=== PATIENT | female | born 1995 | race African-American/Black ===

== ENCOUNTER 2019-08-16 21:10 | Emergency (ER) | payer OTHER ==
--- NOTE | 2019-08-16 21:20 | PDOC ---
Rapid Medical Evaluation Chief Complaint: Suicidal Time Seen by Provider: 08/16/19 21:18 Medical Evaluation: 08/16/19 21:18 CC: depressed x2 weeks with SI. Told father she tried to OD on "pills" but " spit them out." PE: crying in triage. flat affect Orders: labs, urine, 1:1 Patient to proceed to ER for evaluation. Discharge Disposition - Diagnosis Depressed - Referrals - Patient Instructions
[2019-08-16 21:26] VITALS: BMI 17.1
--- NOTE | 2019-08-16 22:03 | PDOC ---
History of Present Illness - General Chief Complaint: Suicidal Stated Complaint: Psychiatric Time Seen by Provider: 08/16/19 21:18 Past History - Past Medical History Allergies/Adverse Reactions: Allergies Allergy/AdvReac Type Severity Reaction Status Date / Time No Known Allergies Allergy Verified 08/16/19 21:22 - Psycho Social/Smoking Cessation Hx Smoking History: Never smoked Drug/Substance Use Hx: Yes (marijuana) *Physical Exam - Vital Signs Last Vital Signs Temp Pulse Resp BP Pulse Ox 98.6 F 78 16 128/79 99 08/16/19 21:22 08/16/19 21:22 08/16/19 21:22 08/16/19 21:22 08/16/19 21:22 ED Treatment Course - LABORATORY CBC & Chemistry Diagram: 08/16/19 22:38 08/16/19 22:38 Medical Decision Making - Medical Decision Making HPI: 24yo F with PMH of depression and anxiety (never been medicated) presenting with depression and suicide attempt. Patient states she has been feeling depressed for the past ten years, but it has gotten worse. Parents at the bedside stated she asked for help earlier today and so they brought her to the ER. Has had poor sleep, low interest in hobbies, endorses feelings of guilt for "not getting better," low energy level, poor appetite, +psychomotor retardation, +suicidal ideation. Patient states she took about ten "yellow circular flat pills" starting with a "C" after which she threw them up. Spoke with a therapist in [place] at [address] but "it did not help." States "it doesn't matter. I just want to sleep. I don't want to be here anymore." Denies prior suicide attempts or hospitalizations. Drank two beers today. Smoked weed a couple days ago. No other substances. PCP: none Psych: does not know the name ROS: Constitutional: no fever, no chills HEENT: no throat pain, no dysphagia Cardiovascular: no chest pain, no palpitations Respiratory: no cough, no shortness of breath Gastrointestinal: no abdominal pain, no nausea Genitourinary: no dysuria, no hematuria Musculoskeletal: no myalgia, no arthralgia Skin: no rash, no itching Neurologic: no headache, no weakness PE: General: Awake, alert, and fully oriented, irritable, flattened affect Head: No signs of trauma Eyes: EOMI, sclera anicteric ENT: Moist mucus membranes Neck: Normal ROM, supple Lungs: Lungs clear, Normal breath sounds Cardio: Regular rhythm, S1 and S2 present Abdomen: Soft, nontender Extremities: Normal range of motion, Distal pulses present SKIN: Warm, Dry, normal turgor Neurologic: Cranial nerves II through XII grossly intact. Normal speech ED Course/MDM: DDX including but not limited to suicidal ideation, intoxication, depression, bipolar disorder Labs, EKG Psych consult EKG: rate 63, QTc 433, sinus rhythm with sinus arrhythmia 08/16/19 22:03 Page to on-call psychiatry, 08/16/19 22:27 Discussed case with ARTHUR Cote who will come see patient in the morning. 08/16/19 23:45 CBC WBC 6.2 K/mm3 (4.0-10.0) 08/16/19 22:38 RBC 5.23 M/mm3 (3.60-5.2) H 08/16/19 22:38 Hgb 13.6 GM/dL (10.7-15.3) 08/16/19 22:38 Hct 41.9 % (32.4-45.2) 08/16/19 22:38 MCV 80.0 fl (80-96) 08/16/19 22:38 MCH 26.0 pg (25.7-33.7) 08/16/19 22:38 MCHC 32.5 g/dl (32.0-36.0) 08/16/19 22:38 RDW 17.5 % (11.6-15.6) H 08/16/19 22:38 Plt Count 347 K/MM3 (134-434) 08/16/19 22:38 MPV 7.9 fl (7.5-11.1) 08/16/19 22:38 Absolute Neuts (auto) 3.2 K/mm3 (1.5-8.0) 08/16/19 22:38 Neutrophils % 51.7 % (42.8-82.8) 08/16/19 22:38 Lymphocytes % 37.6 % (8-40) 08/16/19 22:38 Monocytes % 8.8 % (3.8-10.2) 08/16/19 22:38 Eosinophils % 1.3 % (0-4.5) 08/16/19 22:38 Basophils % 0.6 % (0-2.0) 08/16/19 22:38 Nucleated RBC % 0 % (0-0) 08/16/19 22:38 No leukocytosis CMP Sodium 139 mmol/L (136-145) 08/16/19 22:38 Potassium 3.5 mmol/L (3.5-5.1) 08/16/19 22:38 Chloride 106 mmol/L (98-107) 08/16/19 22:38 Carbon Dioxide 23 mmol/L (21-32) 08/16/19 22:38 Anion Gap 11 MMOL/L (8-16) 08/16/19 22:38 BUN 7.5 mg/dL (7-18) 08/16/19 22:38 Creatinine 0.9 mg/dL (0.55-1.3) 08/16/19 22:38 Est GFR (CKD-EPI)AfAm 105.19 08/16/19 22:38 Est GFR (CKD-EPI)NonAf 90.76 08/16/19 22:38 Random Glucose 71 mg/dL (74-106) L 08/16/19 22:38 Calcium 9.9 mg/dL (8.5-10.1) 08/16/19 22:38 Total Bilirubin 0.8 mg/dL (0.2-1) 08/16/19 22:38 AST 36 U/L (15-37) 08/16/19 22:38 ALT 25 U/L (13-61) 08/16/19 22:38 Alkaline Phosphatase 58 U/L (45-117) 08/16/19 22:38 Total Protein 8.5 g/dl (6.4-8.2) H 08/16/19 22:38 Albumin 5.1 g/dl (3.4-5.0) H 08/16/19 22:38 TSH 0.48 uIU/ml (0.358-3.74) 08/16/19 22:38 Electrolytes unremarkable Normal TSH Tox screen positive for marijuana Negative salicylates and acetaminophen negative 08/17/19 02:36 Patient laying in stretcher Pending psych evaluation 08/17/19 05:08 Psychiatry [employer] evaluating the patient 08/17/19 06:41 Patient to be 2PC'ed From my standpoint, patient is Medically Cleared for Transfer to inpatient psychiatric facility 08/17/19 06:57 Patient signed out to Dr. Viera and day team 08/17/19 07:01 Discharge - Discharge Information Problems reviewed: Yes Clinical Impression/Diagnosis: Depressed Qualifiers: Depression Type: major depressive disorder Major depression recurrence: unspecified whether recurrent Active/Remission status: currently active Major depression episode severity: severe Psychotic features: without psychotic features Qualified Code(s): F32.2 - Major depressive disorder, single episode, severe without psychotic features Suicidal behavior Qualifiers: Attempted self-injury: with attempted self-injury Qualified Code(s): T14.91XA - Suicide attempt, initial encounter Condition: Guarded Disposition: TRANSFER ACUTE CARE/OTHER HOSP - Follow up/Referral - Patient Discharge Instructions - Post Discharge Activity Work/Back to School Note: My Personal Safety Plan
--- NOTE | 2019-08-16 22:06 | PDOC ---
Attending Attestation - Resident Resident Name: Brigida Fuentes - ED Attending Attestation I have performed the following: I have examined & evaluated the patient, The case was reviewed & discussed with the resident, I agree w/resident's findings & plan - HPI HPI: 08/16/19 23:25 see resident hpi - Physicial Exam PE: 08/16/19 23:39 agree with resident exam - Medical Decision Making 08/16/19 23:39 24-year-old female status post suicide attempt with overdose of unknown quantity of unknown pills Plan for medical clearance Call placed to psychiatry currently awaiting callback patient is in no acute distress at this time EKG shows a normal sinus rhythm at 63 bpm with a sinus arrhythmia intervals are within normal limits Rhythm strip shows sinus rhythm rhythm with sinus arrhythmia as well as 65-70 bpm
[2019-08-16 22:41] LABS: BASO % 0.6 % (0-2.0); EOS % 1.3 % (0-4.5); HEMATOCRIT 41.9 % (32.4-45.2); HEMOGLOBIN 13.6 GM/dL (10.7-15.3); LYMPH % 37.6 % (8-40); MCHC 32.5 g/dl (32.0-36.0); MEAN PLT VOLUME 7.9 fl (7.5-11.1); MONO % 8.8 % (3.8-10.2); NEUT % 51.7 % (42.8-82.8); PLATELET COUNT 347 K/MM3 (134-434); RBC 5.23 M/mm3 (3.60-5.2); RDW 17.5 % (11.6-15.6); WHITE BLOOD COUNT 6.2 K/mm3 (4.0-10.0)
[2019-08-16 23:05] LABS: ALBUMIN 5.1 g/dl (3.4-5.0); BILIRUBIN,TOTAL 0.8 mg/dL (0.2-1); BLOOD UREA NITROGEN 7.5 mg/dL (7-18); CALCIUM 9.9 mg/dL (8.5-10.1); CREATININE 0.9 mg/dL (0.55-1.3); POTASSIUM 3.5 mmol/L (3.5-5.1); TOT PROT 8.5 g/dl (6.4-8.2)
[2019-08-17] LABS: EPI CELLS 0.8 /HPF (0-5/HPF); HYALINE CASTS 133 /lpf (0-8); PH,URINE 6.5 (5.0-8.0); URINE APPEARANCE CLOUDY; URINE BACTERIA 5990.2 /hpf (NEGATIVE); URINE BILIRUBIN NEGATIVE (NEGATIVE); URINE COLOR YELLOW; URINE GLUCOSE (UA) NEGATIVE (NEGATIVE); URINE KETONE 2+ (NEGATIVE); URINE LEUK ESTERASE 3+ (NEGATIVE); URINE NITRITE POSITIVE (NEGATIVE); URINE PROTEIN NEGATIVE (NEGATIVE); URINE RBC 5 /hpf (0-4); URINE WBC 167 /hpf (0-5)
[2019-08-17 00:49] LABS: COCAINE, UR NEGATIVE ng/ml (CUTOFF=300); METHADONE, UR NEGATIVE ng/ml (CUTOFF=300); OPIATES, URI NEGATIVE ng/ml (CUTOFF=300); PHENCYCLIDINE,URINE NEGATIVE ng/ml (CUTOFF=25); URINE AMPHETAMINES NEGATIVE ng/ml (CUTOFF=500); URINE BARBITURATES NEGATIVE ng/ml (CUTOFF=200); URINE BENZODIAZEPINES NEGATIVE ng/ml (CUTOFF=200)
--- NOTE | 2019-08-17 07:10 | PN ---
Mental Health Exam - Mental Status Exam Alert and Oriented to: Time, Place, Person Cognitive Function: Grossly Intact Patient Appearance: Unkempt, Disheveled Mood: Depressed, Anxious, Apprehensive, Irritable Affect: Flat, Constricted Patient Behavior: Cooperative Speech Pattern: Tangential Voice Loudness: Mildly Soft/Quiet Thought Process: Circumstantial Thought Disorder: Not Present Hallucinations: Denies Suicidal Ideation: Current, Plan ("Take od of pills to end it all") Homicidal Ideation: Denies Insight/Judgement: Impaired Sleep: Poorly, Difficulty falling asleep (not sleeping for 1 week. ) Appetite: Weight loss Muscle strength/Tone: Normal Gait/Station: Normal
--- NOTE | 2019-08-17 07:18 | PN ---
Progress Note (short form) - Note Progress Note: this is a24yo female with a past history , presented to ER after taking unknown quantity of her moms tabs. Report by dr Fuentes. met patient in ER awake on streacher, while parents alongside her. Client is hopeless helpless in context of recent job loss, unable to pay portion of rent, facing homelessness. she has por appetite, weight loss for past few months,. Client has loss of interest in think she like to do. She is not sleeping for past 4 days. Anxiety level is extremly high. She smokes marjuanna increasing use for past week. She has become more reclusive. No suicidal or homicidal ideation, co of feeling tired all the time. Problem List - Problems (1) Major depression, recurrent, full remission Assessment/Plan: Client is recommended to go to inpatient as she is a danger to herself. Admit 2pc, seek inpatient psychiatric bed. Hold SSRI for 24 hours, then may start leapro 5mg po day. maintain 1;1 Code(s): F33.42 - MAJOR DEPRESSIVE DISORDER, RECURRENT, IN FULL REMISSION
--- NOTE | 2019-08-17 08:07 | PDOC ---
*Physical Exam - Vital Signs Last Vital Signs Temp Pulse Resp BP Pulse Ox 98.6 F 74 16 119/83 100 08/16/19 21:22 08/17/19 01:30 08/17/19 01:30 08/17/19 01:30 08/17/19 01:30 - Physical Exam Comments: 08/17/19 08:06 Patient is a 24-year-old female diagnosed with major depressive episode and recommended for inpatient admission by psychiatry. CBC/CMP are within normal limits. urinalysis consistent with pyuria likely secondary to UTI. Will administer IM ceftriaxone-1 g. Will medically clear. Patient medically clear for inpatient psychiatric evaluation. ED Treatment Course - LABORATORY CBC & Chemistry Diagram: 08/16/19 22:38 08/16/19 22:38 - ADDITIONAL ORDERS Additional order review: Laboratory Results 08/17/19 08/16/19 08/16/19 00:00 23:45 23:45 Sodium Potassium Chloride Carbon Dioxide Anion Gap BUN Creatinine Est GFR (CKD-EPI)AfAm Est GFR (CKD-EPI)NonAf Random Glucose Calcium Total Bilirubin AST ALT Alkaline Phosphatase Total Protein Albumin TSH Urine Color Yellow Urine Appearance Cloudy Urine pH 6.5 Ur Specific [place] 1.014 Urine Protein Negative Urine Glucose (UA) Negative Urine Ketones 2+ H Urine Blood 1+ H Urine Nitrite Positive H Urine Bilirubin Negative Urine Urobilinogen 1.0 Ur Leukocyte Esterase 3+ H Urine WBC (Auto) 167 Urine RBC (Auto) 5 Urine Casts (Auto) 133 U Pathogenic Cast Auto None seen U Epithel Cells (Auto) 0.8 Urine Bacteria (Auto) 5990.2 Urine HCG, Qual Negative Salicylates 5.4 Opiates Screen Methadone Screen Acetaminophen Barbiturate Screen Phencyclidine Screen Ur Amphetamines Screen MDMA (Ecstasy) Screen Benzodiazepines Screen Cocaine Screen U Marijuana (THC) Screen 08/16/19 08/16/19 08/16/19 23:45 22:38 22:38 Sodium Potassium Chloride Carbon Dioxide Anion Gap BUN Creatinine Est GFR (CKD-EPI)AfAm Est GFR (CKD-EPI)NonAf Random Glucose Calcium Total Bilirubin AST ALT Alkaline Phosphatase Total Protein Albumin TSH 0.48 Urine Color Urine Appearance Urine pH Ur Specific [place] Urine Protein Urine Glucose (UA) Urine Ketones Urine Blood Urine Nitrite Urine Bilirubin Urine Urobilinogen Ur Leukocyte Esterase Urine WBC (Auto) Urine RBC (Auto) Urine Casts (Auto) U Pathogenic Cast Auto U Epithel Cells (Auto) Urine Bacteria (Auto) Urine HCG, Qual Salicylates Opiates Screen Negative Methadone Screen Negative Acetaminophen <2.0 Barbiturate Screen Negative Phencyclidine Screen Negative Ur Amphetamines Screen Negative MDMA (Ecstasy) Screen Negative Benzodiazepines Screen Negative Cocaine Screen Negative U Marijuana (THC) Screen Positive A* 08/16/19 22:38 Sodium 139 Potassium 3.5 Chloride 106 Carbon Dioxide 23 Anion Gap 11 BUN 7.5 Creatinine 0.9 Est GFR (CKD-EPI)AfAm 105.19 Est GFR (CKD-EPI)NonAf 90.76 Random Glucose 71 L Calcium 9.9 Total Bilirubin 0.8 AST 36 ALT 25 Alkaline Phosphatase 58 Total Protein 8.5 H Albumin 5.1 H TSH Urine Color Urine Appearance Urine pH Ur Specific [place] Urine Protein Urine Glucose (UA) Urine Ketones Urine Blood Urine Nitrite Urine Bilirubin Urine Urobilinogen Ur Leukocyte Esterase Urine WBC (Auto) Urine RBC (Auto) Urine Casts (Auto) U Pathogenic Cast Auto U Epithel Cells (Auto) Urine Bacteria (Auto) Urine HCG, Qual Salicylates Opiates Screen Methadone Screen Acetaminophen Barbiturate Screen Phencyclidine Screen Ur Amphetamines Screen MDMA (Ecstasy) Screen Benzodiazepines Screen Cocaine Screen U Marijuana (THC) Screen 08/16/19 22:38 RBC 5.23 H MCV 80.0 MCHC 32.5 RDW 17.5 H MPV 7.9 Neutrophils % 51.7 Lymphocytes % 37.6 Monocytes % 8.8 Eosinophils % 1.3 Basophils % 0.6 Discharge - Discharge Information Clinical Impression/Diagnosis: Depressed - Follow up/Referral - Patient Discharge Instructions - Post Discharge Activity Work/Back to School Note: My Personal Safety Plan
[2019-08-17] MEDS ORDERED: CEFTRIAXONE 1,000 MG in DEXTROSE 5%-WATER - 50 ML IM ONE (08:08)
[2019-08-17] MEDS ORDERED: LIDOCAINE HCL 1%, 10 MG/ML (20ML VIAL) ONE (08:14)
[2019-08-17] MEDS ORDERED: cefTRIAXone SODIUM 1 GM VIAL ONE (08:15)
[2019-08-17] MEDS ORDERED: levoFLOXacin 750 MG TABLET PO ONE (08:20)
[2019-08-17] MEDS ORDERED: ONDANSETRON *ODT* 4 MG TABLET SL ONE (08:55)
[2019-08-17] MEDS ORDERED: ONDANSETRON *ODT* 4 MG TABLET ONE (08:55)
[2019-08-17 09:41] VITALS: TEMP 99.3
--- NOTE | 2019-08-17 11:31 | EKG ---
Test Reason : Blood Pressure : / mmHG Vent. Rate : 063 BPM Atrial Rate : 063 BPM P-R Int : 138 ms QRS Dur : 096 ms QT Int : 424 ms P-R-T Axes : 008 050 048 degrees QTc Int : 433 ms SINUS RHYTHM WITH MARKED SINUS ARRHYTHMIA OTHERWISE NORMAL ECG NO PREVIOUS ECGS AVAILABLE Confirmed by KRISTIAN DANIELS, VERNON ([id number]) on 08/17/2019 11:31:16 AM Referred By: Confirmed By:VERNON TOWNSEND MD
[2019-08-17] MEDS ORDERED: MELATONIN 5 MG TABLETS PO ONE (16:51)
[2019-08-17 17:35] VITALS: BP 104/71; PULSE 56
--- NOTE | 2019-08-17 17:48 | PDOC ---
*Physical Exam - Vital Signs Last Vital Signs Temp Pulse Resp BP Pulse Ox 99.3 F 56 L 16 104/71 100 08/17/19 09:30 08/17/19 17:34 08/17/19 17:34 08/17/19 17:34 08/17/19 17:34 - Physical Exam Comments: 08/17/19 18:05 Gen: aaox3, resting comfortably heart: +s1s2 reg lungs: cta bl abd: soft, nt/nd +bs ext: no c/c/e ED Treatment Course - LABORATORY CBC & Chemistry Diagram: 08/16/19 22:38 08/16/19 22:38 - ADDITIONAL ORDERS Additional order review: 08/16/19 22:38 RBC 5.23 H MCV 80.0 MCHC 32.5 RDW 17.5 H MPV 7.9 Neutrophils % 51.7 Lymphocytes % 37.6 Monocytes % 8.8 Eosinophils % 1.3 Basophils % 0.6 - Medications Given in the ED: ED Medications Discontinued Medications Generic Name Dose Route Start Last Admin Trade Name Mike PRN Reason Stop Dose Admin Ceftriaxone Sodium 1,000 mg 08/17/19 08:11 08/17/19 08:22 Rocephin - IM 08/17/19 08:12 Not Given ONCE ONE Ceftriaxone Sodium 1,000 mg/ 50 mls @ 100 mls/hr 08/17/19 08:08 08/17/19 08: 12 Dextrose IM 08/17/19 08:37 Not Given ONCE ONE Levofloxacin 500 mg 08/17/19 08:20 08/17/19 08:27 Levaquin - PO 08/17/19 08:21 500 mg ONCE ONE Administration Levofloxacin 750 mg 08/17/19 08:20 08/17/19 08:23 Levaquin PO 08/17/19 08:21 Not Given ONCE ONE Ondansetron HCl 8 mg 08/17/19 08:55 08/17/19 09:00 Zofran Odt - SL 08/17/19 08:56 8 mg ONCE ONE Administration Medical Decision Making - Medical Decision Making 08/17/19 17:46 pt with 2pc on the chart. pt with SI and MDD. Pt pending transfer. pt has been accepted at [facility] under Dr. Laura Ayala. 08/17/19 18:05 transfer paperwork completed. pending transport pickup Discharge - Discharge Information Problems reviewed: Yes Clinical Impression/Diagnosis: Depressed Condition: Fair Disposition: TRANSFER ACUTE CARE/OTHER HOSP - Follow up/Referral - Patient Discharge Instructions - Post Discharge Activity Work/Back to School Note: My Personal Safety Plan - Transfer to Acute Care Facility [facility] [facility] Physician:: Dr. Laura Ayala
== END 2019-08-17 19:35 | disposition short-term general hospital (02) ==
LOC: JER 21:10
DX: F32.9 Major depressive disorder, single episode, unspecified (principal); T14.91XA Suicide attempt, initial encounter; T50.912A Poisoning by multiple unspecified drugs, medicaments and biological substances, intentional self-harm, initial encounter; Y92.9 Unspecified place or not applicable; N39.0 Urinary tract infection, site not specified
CPT/HCPCS: 36415; 80053; 80307; 81003; 84443; 84703; 85025; 93005; 93010; 99285-25; Q0162